=== PATIENT | female | born 1990 | race Caucasian/White ===

== ENCOUNTER 2018-01-16 17:49 | Inpatient (IN) | payer BC ==
[2018-01-16] MEDS ORDERED: Lidocaine 1% 50 ML MDV INJECT ONE (18:52)
[2018-01-16] MEDS ORDERED: Sodium Chloride 0.9% 10 ML Syringe FLUSH PRN (18:52)
[2018-01-16] MEDS ORDERED: Lactated Ringers 1,000 ML IV SCH ×2 (19:00)
[2018-01-16] MEDS ORDERED: Oxytocin/Lactated Ringers 10 UNIT/1,000 ML BAG IV ONE (19:07)
[2018-01-16] MEDS ORDERED: Nalbuphine 20 MG/1 ML Amp ONE (19:11)
[2018-01-16] MEDS ORDERED: Oxytocin/Lactated Ringers 10 UNIT/1,000 ML BAG IV SCH (19:15)
--- NOTE | 2018-01-16 20:24 | PCM.LDHP ---
L&D History of Present Illness - General Date of Service: 01/16/18 Admit Problem/Dx: Admission Diagnosis/Problem Admission Diagnosis/Problem Source of Information: Patient History Limitations: Reports: No Limitations - History of Present Illness Introduction:: 27 year old here in active labor - Related Data Allergies/Adverse Reactions: Allergies Allergy/AdvReac Type Severity Reaction Status Date / Time No Known Allergies Allergy Verified 12/11/15 09:37 Home Medications: Home Meds Vit No.130/Iron/FA [ Vitamins] 1 each PO DAILY 12/11/15 [ History] Past Medical History - Past Health History Medical/Surgical History: Denies Medical/Surgical History Social & Family History - Tobacco Use Smoking Status *Q: Never Smoker Second Hand Smoke Exposure: No - Recreational Drug Use Recreational Drug Use: No H&P Review of Systems - Review of Systems: Review Of Systems: See Below General: Reports: No Symptoms HEENT: Reports: No Symptoms Pulmonary: Reports: No Symptoms Cardiovascular: Reports: No Symptoms Gastrointestinal: Reports: No Symptoms Genitourinary: Reports: No Symptoms Musculoskeletal: Reports: No Symptoms Skin: Reports: No Symptoms Psychiatric: Reports: No Symptoms Neurological: Reports: No Symptoms Hematologic/Lymphatic: Reports: No Symptoms Immunologic: Reports: No Symptoms L&D Exam - Exam Exam: See Below - OB Specific Contraction Intensity: Moderate to Strong Movement: Active Heart Tones: Present Heart Rate (FHR) Variability: Moderate (6-25 bmp) Presentation: Vertex - Alvarado Score Alvarado Score Cervix Position: Anterior Alvarado Score Consistency: Soft Alvarado Score Effacement: >80% Alvarado Score Dilation: > 5 cm Alvarado Score Infant's Station: -1 ,0 Alvarado Score Total: 12 - Exam General: Alert, Oriented HEENT: PERRLA, Conjunctiva Clear, EACs Clear, EOMI, Hearing Intact, Mucosa Moist & Pyatt, Nares Patent, Normal Nasal Septum, Posterior Pharynx Clear, TMs Clear Neck: Supple, Trachea Midline Lungs: Clear to Auscultation, Normal Respiratory Effort Cardiovascular: Regular Rate, Regular Rhythm GI/Abdominal Exam: Normal Bowel Sounds, Soft, Non-Tender, No Organomegaly, No Distention, No Abnormal Bruit, No Mass, Pelvis Stable Rectal Exam: Normal Exam, Normal Rectal Tone Genitourinary: Normal external exam, Normal bimanual exam, Normal speculum exam Back Exam: Normal Inspection, Full Range of Motion Extremities: Normal Inspection, Normal Range of Motion, Non-Tender, No Pedal Edema, Normal Capillary Refill Skin: Warm, Dry, Intact Neurological: Cranial Nerves Intact, Reflexes Equal Bilateral Psychiatric: Alert, Normal Affect, Normal Mood - Patient Data Lab Results Last 24 hrs: Laboratory Results - last 24 hr 01/16/18 Range/Units 19:05 WBC 14.11 H (3.98-10.04) K/mm3 RBC 4.62 (3.98-5.22) M/mm3 Hgb 12.8 (11.2-15.7) gm/L Hct 39.1 (34.1-44.9) % MCV 84.6 (79.4-94.8) fl MCH 27.7 (25.6-32.2) pg MCHC 32.7 (32.2-35.5) g/dl RDW Std Deviation 43.3 (36.4-46.3) fL Plt Count 260 (182-369) K/mm3 MPV 10.1 (9.4-12.3) fl Result Diagrams: 01/16/18 19:05 Problem List Initiated/Reviewed/Updated: Yes Orders Last 24hrs: Active Orders 24 hr Category Date Time Status Activity as Tolerated [RC] PFP Care 01/16/18 18:52 Active Activity as Tolerated [RC] PFP Care 01/16/18 18:52 Active Communication Order [RC] ASDIRECTED Care 01/16/18 18:52 Active Communication Order [RC] ASDIRECTED Care 01/16/18 18:52 Active Heart Tones [RC] ASDIRECTED Care 01/16/18 18:52 Active Notify Provider [RC] PFP Care 01/16/18 18:52 Active Notify Provider [RC] PFP Care 01/16/18 18:52 Active Notify Provider [RC] PRN Care 01/16/18 18:52 Active Notify Provider [RC] PRN Care 01/16/18 18:52 Active Peripheral IV Care [RC] . DIRECTED Care 01/16/18 18:52 Active Vital Signs [RC] PER UNIT ROUTINE Care 01/16/18 18:52 Active Vital Signs [RC] PER UNIT ROUTINE Care 01/16/18 18:52 Active Regular Diet [DIET] Diet 01/16/18 Breakfast Active Lactated Ringers [Ringers, Lactated] 1,000 ml Med 01/16/18 19:00 Active IV ASDIRECTED Oxytocin/Lactated Ringers [Pitocin in LR 10 Units/1,000 Med 01/16/18 19:15 Active ML] 10 unit in 1,000 ml IV ASDIRECTED Sodium Chloride 0.9% [Saline Flush] Med 01/16/18 18:52 Active 10 ml FLUSH ASDIRECTED PRN Electronic Heart Tones Ext w TOCO [WOMSER] Oth 01/16/18 18:52 Ordered Routine Electronic Heart Tones Ext w TOCO [WOMSER] Ot 01/16/18 18:52 Ordered Routine Electronic Heart Tones Internal [WOMSER] Per Unit Ot 01/16/18 18:52 Ordered Routine Electronic Heart Tones Internal [WOMSER] Per Unit Ot 01/16/18 18:52 Ordered Routine Peripheral IV Insertion Adult [OM.PC] Routine Ot 01/16/18 18:52 Ordered Peripheral IV Insertion Adult [OM.PC] Routine Ot 01/16/18 18:52 Ordered Resuscitation Status Routine Resus Stat 01/16/18 18:52 Ordered Medication Orders Lactated Ringer's (Ringers, Lactated) 1,000 mls @ 100 mls/hr IV ASDIRECTED INGE Oxytocin/Lactated Ringer's (Pitocin In Lr 10 Units/1,000 Ml) 10 unit in 1,000 mls @ 500 mls/hr IV ASDIRECTED INGE PRN Reason: Protocol Sodium Chloride (Saline Flush) 10 ml FLUSH ASDIRECTED PRN PRN Reason: Keep Vein Open Assessment/Plan Comment:: term labor. Anticipate
[2018-01-16] MEDS ORDERED: Ibuprofen 600 MG Tab PO PRN (20:45)
[2018-01-16] MEDS ORDERED: Lanolin 100% Cream 7 GM Tube TOP PRN (20:45)
[2018-01-16] MEDS ORDERED: Docusate Sodium 100 MG Cap PO PRN (20:45)
[2018-01-16] MEDS ORDERED: Witch Hazel Medicated Pads 100/Jar TOP PRN (20:45)
[2018-01-16] MEDS ORDERED: Benzocaine/Menthol 20%-0.5% Spray 56 GM Canister TOP PRN (22:42)
[2018-01-16] MEDS: Acetaminophen 325 MG Tab PO PRN (22:44)
[2018-01-17] MEDS: Acetaminophen 325 MG Tab PO PRN ×3 (09:04→21:52)
--- NOTE | 2018-01-17 11:33 | PCM.DCSUM1 ---
Discharge Summary - Hospital Course Free Text/Narrative:: Spontaneous vaginal delivery first-degree laceration by Dr. Clark on 01/16/18Friday HPI Initial Comments: Spontaneous vaginal delivery first-degree laceration by Dr. Clark on 01/16/18Friday Brief History: Spontaneous vaginal delivery first-degree laceration by Dr. Clark on 01/16/18Friday - Discharge Data Discharge Date: 01/17/18 Discharge Disposition: Home, Self-Care 01 Condition: Good - Discharge Diagnosis/Problem(s) (1) First degree laceration of perineum during delivery, SNOMED Code(s): 188052472 ICD Code: O70.0 - FIRST DEGREE PERINEAL LACERATION DURING DELIVERY Status: Acute Current Visit: Yes (2) 40 weeks gestation of SNOMED Code(s): 98803415 ICD Code: Z3A.40 - 40 WEEKS GESTATION OF Status: Acute Current Visit: Yes - Patient Summary/Data Complications: None Consults: None Hospital Course: Uneventful - Patient Instructions Diet: Regular Diet as Tolerated Driving: Do Not Drive ([place] 48 hours) Showering/Bathing: May Shower Notify Provider of: Fever, Increased Pain, Swelling and Redness, Drainage, Nausea and/or Vomiting - Discharge Plan Prescriptions/Med Rec: Docusate Sodium [Colace Clear] 50 mg PO BID #60 capsule Home Medications: Home Meds Vit No.130/Iron/FA [ Tablet] 1 each PO DAILY 12/11/15 [History] Benzocaine/Menthol [Dermoplast Pain Relief [place]] 0 gm TOP ASDIRECTED PRN canister 01/17/18 [Rx] Docusate Sodium [Colace Clear] 50 mg PO BID #60 capsule 01/17/18 [Rx] Ibuprofen [IJD: Ibuprofen] 600 mg PO Q6H PRN tablet 01/17/18 [Rx] Lanolin [Lansinoh HPA] 1 applic TOP ASDIRECTED PRN tube 01/17/18 [Rx] Referrals: Tere Clark MD [Primary Care Provider] - (6 weeks) - Discharge Summary/Plan Comment DC Time >30 min.: No - Patient Data Vitals - Most Recent: Last Vital Signs Temp 97.0 F 01/17/18 03:37 Pulse 87 01/17/18 03:37 Resp 16 01/17/18 03:37 BP 133/74 01/17/18 03:37 Pulse Ox 98 01/17/18 03:37 Weight - Most Recent: 193 lb I&O - Last 24 hours: Intake & Output 01/16/18 01/17/18 01/17/18 22:59 06:59 14:59 Intake Total 1000 Balance 1000 Lab Results - Last 24 hrs: Laboratory Results - last 24 hr 01/16/18 Range/Units 19:05 WBC 14.11 H (3.98-10.04) K/mm3 RBC 4.62 (3.98-5.22) M/mm3 Hgb 12.8 (11.2-15.7) gm/L Hct 39.1 (34.1-44.9) % MCV 84.6 (79.4-94.8) fl MCH 27.7 (25.6-32.2) pg MCHC 32.7 (32.2-35.5) g/dl RDW Std Deviation 43.3 (36.4-46.3) fL Plt Count 260 (182-369) K/mm3 MPV 10.1 (9.4-12.3) fl Med Orders - Current: Current Medications Acetaminophen (Tylenol) 650 mg PO Q4H PRN PRN Reason: mild pain or fever Last Admin: 01/17/18 09:04 Dose: 650 mg Benzocaine/Menthol (Dermoplast Pain Relief [place]) 0 gm TOP ASDIRECTED PRN PRN Reason: Pain Last Admin: 01/16/18 23:12 Dose: 1 jar Docusate Sodium (Colace) 100 mg PO BID PRN PRN Reason: Constipation Emollient Ointment (Lansinoh Hpa) 0 gm TOP ASDIRECTED PRN PRN Reason: Sore Nipples Ibuprofen (Motrin) 600 mg PO Q6H PRN PRN Reason: Mild pain or fever Witch Mandy (Tucks) 1 pad TOP ASDIRECTED PRN PRN Reason: Hemorrhoid pain Last Admin: 01/16/18 22:44 Dose: 1 jar Discontinued Medications Lactated Ringer's (Ringers, Lactated) 1,000 mls @ 100 mls/hr IV ASDIRECTED INGE Lactated Ringer's (Ringers, Lactated) 1,000 mls @ 100 mls/hr IV ASDIRECTED INGE Oxytocin/Lactated Ringer's (Pitocin In Lr 10 Units/1,000 Ml) Confirm Administered Dose 10 unit in 1,000 mls @ as directed IV .STK-MED ONE Stop: 01/16/18 19:08 Last Admin: 01/17/18 02:02 Dose: Not Given Oxytocin/Lactated Ringer's (Pitocin In Lr 10 Units/1,000 Ml) 10 unit in 1,000 mls @ 500 mls/hr IV ASDIRECTED INGE PRN Reason: Protocol Last Admin: 01/16/18 20:23 Dose: 500 mls/hr Lidocaine HCl (Xylocaine 1%) 10 ml INJECT ONETIME ONE Stop: 01/16/18 18:53 Last Admin: 01/16/18 20:23 Dose: 10 ml Nalbuphine HCl (Nubain) Confirm Administered Dose 20 mg .ROUTE [employer] ONE Stop: 01/16/18 19:12 Last Admin: 01/16/18 19:15 Dose: 20 mg Sodium Chloride (Saline Flush) 10 ml FLUSH ASDIRECTED PRN PRN Reason: Keep Vein Open *Q Meaningful Use (DIS) - VTE *Q VTE Criteria *Q: - Stroke *Q Stroke Criteria *Q: - AMI *Q AMI Criteria *Q:
[2018-01-18] MEDS: Acetaminophen 325 MG Tab PO PRN (08:19)
[2018-01-18 09:30] VITALS: BP 134/84
== END 2018-01-18 09:30 | disposition home or self-care (01) | DRG 560 ==
LOC: JD.OB 17:49 → OBSVTOIN 20:08 → JD.OB 20:08
PROVIDERS: ADMIT Obstetrics & Gynecology; ATTEND Obstetrics & Gynecology
PROC: 10E0XZZ Delivery of Products of Conception, External Approach (ICD-10-PCS; principal; 2018-01-16)
PROC: 10907ZC Drainage of Amniotic Fluid, Therapeutic from Products of Conception, Via Natural or Artificial Opening (ICD-10-PCS; 2018-01-16)
PROC: 0HQ9XZZ Repair Perineum Skin, External Approach (ICD-10-PCS; 2018-01-16)
DX: O70.0 First degree perineal laceration during delivery (principal); Z3A.40 40 weeks gestation of pregnancy; Z37.0 Single live birth
CPT/HCPCS: 36415; 59300; 59409; 85027; A9270-GY; J2300; J2590

== ENCOUNTER 2020-05-14 01:05 | Emergency (ER) | payer BC, OTHER ==
[2020-05-14 01:17] VITALS: BP 155/92; PULSE 91
--- NOTE | 2020-05-14 02:24 | EDM.PDOC ---
ED HPI GENERAL MEDICAL PROBLEM - General Chief Complaint: Abdominal Pain Stated Complaint: ABDOMINAL/CHEST PAIN Time Seen by Provider: 05/14/20 02:24 - History of Present Illness INITIAL COMMENTS - FREE TEXT/NARRATIVE: 29-year-old female presents the emergency room with upper abdominal and lower chest pain. She gets this on and on and off basis but is been more bothersome this evening than normal. The patient has had some nausea no vomiting. Her stools have been a little on the loose side but certainly not diarrhea and they are still formed. Patient denies any fevers or chills. The patient gets this on an intermittent basis but this is more bothersome than normal. Patient has not had any breathing difficulties or shortness of breath or severe chest pressure at times she notices the pain radiating into her shoulder. Upper Abdomen Pain Score (Numeric/FACES): 6 - Related Data Allergies Allergy/AdvReac Type Severity Reaction Status Date / Time No Known Allergies Allergy Verified 05/14/20 01:17 Home Meds: Home Meds Fexofenadine/Pseudoephedrine [Мария-D 24 Hour Tablet] 1 tab PO DAILY 05/14/20 [History] Fluticasone Propionate [Flonase] 1 spray NS DAILY 05/14/20 [History] Potassium Chloride [Klor-Con M20] 20 meq PO Q12H #4 tab.er.prt 05/14/20 [Rx] Past Medical History - Past Health History Medical/Surgical History: Denies Medical/Surgical History Cardiovascular History: Reports: None Respiratory History: Reports: None Gastrointestinal History: Reports: None Genitourinary History: Reports: None [employer] History: Reports: Musculoskeletal History: Reports: None Neurological History: Reports: None Psychiatric History: Reports: None Endocrine/Metabolic History: Reports: None Hematologic History: Reports: None Immunologic History: Reports: None Oncologic (Cancer) History: Reports: None Dermatologic History: Reports: None - Infectious Disease History Infectious Disease History: Reports: None - Past Surgical History HEENT Surgical History: Reports: Oral Surgery Social & Family History - Family History Family Medical History: Noncontributory - Tobacco Use Smoking Status *Q: Never Smoker - Caffeine Use Caffeine Use: Reports: Coffee - Recreational Drug Use Recreational Drug Use: No ED ROS GENERAL - Review of Systems Review Of Systems: See Below Constitutional: Reports: No Symptoms HEENT: Reports: Other (Some allergic rhinitis symptoms but nothing out of the ordinary) Respiratory: Reports: No Symptoms, Other (She has some chest discomfort that is nonreproducible) Cardiovascular: Reports: Other (Vague chest discomfort) Endocrine: Reports: No Symptoms GI/Abdominal: Reports: Abdominal Pain, Nausea, Other (Stools are softer than normal but not runny and not frequent). Denies: Constipation, Diarrhea, Vomiting : Reports: No Symptoms Musculoskeletal: Reports: No Symptoms Skin: Reports: No Symptoms Neurological: Reports: No Symptoms Psychiatric: Reports: No Symptoms ED EXAM, GI/ABD - Physical Exam Exam: See Below Exam Limited By: No Limitations General Appearance: Alert, No Apparent Distress Head: Atraumatic, Normocephalic Neck: Normal Inspection, Supple, Non-Tender, Full Range of Motion. No: Lymphadenopathy (L), Lymphadenopathy (R) Respiratory/Chest: No Respiratory Distress, Lungs Clear, Normal Breath Sounds, Other (Deep breathing does not make the pain better or worse) Cardiovascular: Regular Rate, Rhythm, No Edema, No Murmur GI/Abdominal Exam: Normal Bowel Sounds, Soft, Other (Vague upper abdominal discomfort not really aggravated by palpation) Back Exam: Normal Inspection. No: CVA Tenderness (L), CVA Tenderness (R) Extremities: Normal Inspection, Normal Range of Motion, Non-Tender Neurological: Alert, Oriented, Normal Cognition EKG INTERPRETATION EKG Date: 05/14/20 Rhythm: NSR [place]: Normal P-Wave: Present QRS: Normal ST-T: Normal QT: Normal Comparison: NA - No Prior EKG EKG Interpretation Comments: Normal EKG Course - Vital Signs Last Recorded V/S: Last Vital Signs Temp 36.4 C 05/14/20 01:14 Pulse 91 05/14/20 01:14 Resp 16 05/14/20 01:14 BP 155/92 H 05/14/20 01:14 Pulse Ox 100 05/14/20 01:14 - Orders/Labs/Meds Orders: Active Orders 24 hr Category Date Time Status EKG Documentation Completion [RC] STAT Care 05/14/20 02:33 Active Chest 2V [CR] Stat Exams 05/14/20 02:34 Taken Labs: Laboratory Tests 05/14/20 05/14/20 05/14/20 Range/Units 01:25 01:25 01:25 WBC 8.68 (3.98-10.04) K/mm3 RBC 4.92 (3.98-5.22) M/mm3 Hgb 14.9 D (11.2-15.7) gm/dl Hct 43.3 (34.1-44.9) % MCV 88.0 D (79.4-94.8) fl MCH 30.3 (25.6-32.2) pg MCHC 34.4 (32.2-35.5) g/dl RDW Std Deviation 39.7 (36.4-46.3) fL Plt Count 296 (182-369) K/mm3 MPV 9.7 (9.4-12.3) fl Neut % (Auto) 57.5 (34.0-71.1) % Lymph % (Auto) 31.3 (19.3-51.7) % [place] % (Auto) 9.3 (4.7-12.5) % Eos % (Auto) 1.3 (0.7-5.8) Baso % (Auto) 0.5 (0.1-1.2) % Neut # (Auto) 4.99 (1.56-6.13) K/mm3 Lymph # (Auto) 2.72 (1.18-3.74) K/mm3 [place] # (Auto) 0.81 H (0.24-0.36) K/mm3 Eos # (Auto) 0.11 (0.04-0.36) K/mm3 Baso # (Auto) 0.04 (0.01-0.08) K/mm3 D-Dimer, Quantitative 0.23 (0.19-0.50) mg/L Sodium 142 (136-145) mEq/L Potassium 3.0 L (3.5-5.1) mEq/L Chloride 102 (98-107) mEq/L Carbon Dioxide 29 (21-32) mEq/L Anion Gap 14.0 (5-15) BUN 24 H (7-18) mg/dL Creatinine 1.2 H (0.55-1.02) mg/dL Est Cr Clr Drug Dosing 59.73 mL/min Estimated GFR (MDRD) 53 (>60) mL/min BUN/Creatinine Ratio 20.0 H (14-18) Glucose 114 H (74-106) mg/dL Calcium 10.3 H (8.5-10.1) mg/dL Total Bilirubin 0.6 (0.2-1.0) mg/dL AST 18 (15-37) U/L ALT 26 (14-59) U/L Alkaline Phosphatase 48 (46-116) U/L Troponin I < 0.017 (0.00-0.056) ng/mL Total Protein 7.7 (6.4-8.2) g/dl Albumin 4.5 (3.4-5.0) g/dl Globulin 3.2 gm/dL Albumin/Globulin Ratio 1.4 (1-2) Lipase 105 (73-393) U/L Meds: Medications Discontinued Medications Generic Name Dose Route Start Last Admin Trade Name Freq PRN Reason Stop Dose Admin Al Hydroxide/Mg Hydroxide 30 0 ml 05/14/20 03:02 05/14/20 03:09 ml/ Lidocaine HCl 15 ml PO 05/14/20 03:03 45 ml ONETIME ONE Administration Famotidine 40 mg 05/14/20 03:47 05/14/20 04:05 Pepcid PO 05/14/20 03:48 40 mg ONETIME ONE Administration Lactated Ringer's 1,000 mls @ 999 mls/hr 05/14/20 04:02 05/14/20 04:08 Ringers, Lactated IV 05/14/20 05:02 999 mls/hr .BOLUS ONE Administration Potassium Chloride 40 meq 05/14/20 04:02 05/14/20 04:06 Klor-Con M20 PO 05/14/20 04:03 40 meq ONETIME ONE Administration - Re-Assessments/Exams Free Text/Narrative Re-Assessment/Exam: 05/14/20 03:46 Laboratory evaluation is unremarkable then some hypokalemia and she appears to be dry from a laboratory standpoint. EKG is essentially normal. The patient had significant improvement with a GI cocktail. We will give her 40 mill grams of Pepcid now and then have her take 20 mg twice daily for 7 days and then 1 daily thereafter. We will give fluids and potassium 05/14/20 05:24 Feels better after some IV fluids. She agrees to drink plenty of fluids at home and take the potassium as directed as well as the Pepcid. Departure - Departure Time of Disposition: 05:24 Disposition: Home, Self-Care 01 Clinical Impression: Dyspepsia, Hypokalemia, Dehydration - Discharge Information Prescriptions: Potassium Chloride [Klor-Con M20] 20 meq PO Q12H #4 tab.er.prt Instructions: Hypokalemia, Dehydration, Adult Referrals: Tere Clark MD [Primary Care Provider] - Forms: ED Department Discharge Additional Instructions: Return to the emergency room with any questions problems or worsening symptoms. Push lots of fluids as you are still probably on the dry side. Take the potassium as directed you will only take it for 2 days. Get some [id number] Pepcid, or famotidine the generic name. This should come in 20 mg tablets take 1 twice daily for 7 days and then 1 daily thereafter. Follow-up with your healthcare provider in 1 week for recheck. Have your potassium rechecked. Sepsis Event Note (ED) - Evaluation Sepsis Screening Result: No Definite Risk - Focused Exam Vital Signs: Vital Signs Temp Pulse Resp BP Pulse Ox 05/14/20 01:14 36.4 C 91 16 155/92 H 100 - My Orders Last 24 Hours: My Active Orders 05/14/20 02:33 EKG Documentation Completion [RC] STAT 05/14/20 02:34 Chest 2V [CR] Stat - Assessment/Plan Last 24 Hours: My Active Orders 05/14/20 02:33 EKG Documentation Completion [RC] STAT 05/14/20 02:34 Chest 2V [CR] Stat
[2020-05-14] MEDS ORDERED: Alum Hydrox/Mag Hydrox/Simeth 30 ML, Lidocaine 2% 15 ML PO ONE ×2 (03:02)
[2020-05-14] MEDS ORDERED: Famotidine 20 MG Tab PO ONE (03:47)
[2020-05-14] MEDS ORDERED: Potassium Chloride 20 MEQ Tab.ER PO ONE (04:02)
[2020-05-14] MEDS ORDERED: Lactated Ringers 1,000 ML IV ONE (04:02)
--- NOTE | 2020-05-14 10:51 | CR ---
Chest: PA and lateral views of the chest were obtained. Comparison: No prior chest imaging is available. Findings: Heart size and mediastinum are normal. Lungs are clear. Bony structures appear within normal limits. Impression: 1. Nothing acute is appreciated on 2 view chest x-ray. Diagnostic code #1 This report was dictated in MDT
== END 2020-05-14 05:34 | disposition home or self-care (01) ==
LOC: JD.ED 01:05
DX: E86.0 Dehydration (principal); E87.6 Hypokalemia; Z79.899 Other long term (current) drug therapy
CPT/HCPCS: 36415; 71046; 80053; 83690; 84484; 85025; 85379; 93005; 96360; 99285; A9270; J7120; 93010; 99284

== ENCOUNTER 2020-11-30 11:40 | Emergency (ER) | payer BC ==
[2020-11-30 12:05] VITALS: BP 139/87; PULSE 80
--- NOTE | 2020-11-30 12:31 | EDM.PDOC ---
ED HPI GENERAL MEDICAL PROBLEM - General Chief Complaint: Neurological Problem Stated Complaint: DIZZY/TINGLING IN HANDS AND FEET Time Seen by Provider: 11/30/20 12:10 Source of Information: Reports: Patient History Limitations: Reports: No Limitations - History of Present Illness INITIAL COMMENTS - FREE TEXT/NARRATIVE: 30-year-old female presents to the emergency department with complaints of dizziness and numbness noted to her bilateral hands and feet. Patient states that this started after she received her first Covid vaccine on Friday which was 3 days ago. Patient states that she notices the numbness to her hands and feet when she is sitting or resting. She states that this dissipates when she is up and moving around or being active. She states that the numbness to her bilateral hands is similar to that of a glove, however she denies increased weakness or decreased range of motion to her bilateral hands. She states that she has numbness to her bilateral lower extremities from about mid calf on down that is intermittent as well. She states that the numbness is circumferential. And it decreases she denies a headache, fever, chills, nausea, vomiting or d iarrhea. Onset: Gradual - Related Data Allergies Allergy/AdvReac Type Severity Reaction Status Date / Time No Known Allergies Allergy Verified 11/27/20 10:31 Home Meds: Home Meds Fluticasone Propionate [Flonase] 1 spray NS ASDIRECTED 05/14/20 [History] Omeprazole 20 mg PO DAILY 11/30/20 [History] Past Medical History - Past Health History Medical/Surgical History: Denies Medical/Surgical History Cardiovascular History: Reports: None Respiratory History: Reports: None Gastrointestinal History: Reports: None, GERD Genitourinary History: Reports: None [employer] WORK[employer] History: Reports: Musculoskeletal History: Reports: None Neurological History: Reports: None Psychiatric History: Reports: None Endocrine/Metabolic History: Reports: None Hematologic History: Reports: None Immunologic History: Reports: None Oncologic (Cancer) History: Reports: None Dermatologic History: Reports: None - Infectious Disease History Infectious Disease History: Reports: None, Chicken Pox - Past Surgical History HEENT Surgical History: Reports: Oral Surgery GI Surgical History: Reports: EGD Social & Family History - Family History Family Medical History: No Pertinent Family History - Tobacco Use Tobacco Use Status *Q: Never Tobacco User - Caffeine Use Caffeine Use: Reports: Coffee - Recreational Drug Use Recreational Drug Use: No ED ROS GENERAL - Review of Systems Review Of Systems: See Below Constitutional: Reports: No Symptoms HEENT: Reports: Vertigo Respiratory: Reports: No Symptoms Cardiovascular: Reports: No Symptoms Endocrine: Reports: No Symptoms GI/Abdominal: Reports: No Symptoms : Reports: No Symptoms Musculoskeletal: Reports: No Symptoms Skin: Reports: No Symptoms Neurological: Reports: Numbness (Bilateral hands and bilateral lower extremities from francis on down), Tingling (Bilateral hands and bilateral lower extremities from francis on down) Psychiatric: Reports: No Symptoms Hematologic/Lymphatic: Reports: No Symptoms Immunologic: Reports: No Symptoms ED EXAM, NEURO - Physical Exam Exam: See Below Exam Limited By: No Limitations General Appearance: Alert, WD/WN, No Apparent Distress Eye Exam: Bilateral Eye: PERRL Ears: Normal External Exam, Normal Canal, Hearing Grossly Normal, Normal TMs Nose: Normal Inspection Throat/Mouth: Normal Inspection, Normal Lips, Normal Voice, No Airway Compromise Head Exam: Atraumatic, Normocephalic Neck: Normal Inspection, Supple, Non-Tender, Full Range of Motion Respiratory/Chest: No Respiratory Distress, Lungs Clear, Normal Breath Sounds, No Accessory Muscle Use, Chest Non-Tender Cardiovascular: Normal Peripheral Pulses, Regular Rate, Rhythm, No Edema, No Murmur GI/Abdominal: Normal Bowel Sounds, Soft, Non-Tender, No Distention (Female) Exam: Deferred Rectal (Female) Exam: Deferred Neurological: Alert, Normal Mood/Affect, CN II-XII Intact, Normal Gait, No Motor/Sensory Deficits, Oriented x 3 Back Exam: Normal Inspection, Full Range of Motion Extremities: Normal Inspection, Normal Range of Motion, Non-Tender, No Pedal Edema, Normal Capillary Refill Psychiatric: Normal Affect, Normal Mood Skin Exam: Warm, Dry, Intact, Normal Color, No Rash Course - Vital Signs Text/Narrative:: 30-year-old female presents emergency department complaints of numbness and tingling noted to her bilateral hands and lower extremities from mid francis on down. She states that it is intermittent when it occurs and she notices it more predominantly when she is sitting down to rest or laying in bed. She states that when she is up moving around or being active the numbness dissipates. Patient also complains of intermittent "dizziness ". Upon assessment patient's bilateral ears are unremarkable there is no wax noted up against the eardrum and no bulging or erythema noted. Patient has equal director financial services and equal push pull strength to the lower extremities. Full neuro exam was unremarkable. I have ordered a CBC, CMP, and a magnesium level. As patient states she does have a history of hypokalemia. Last Recorded V/S: Last Vital Signs Temp 98.1 F 11/30/20 12:02 Pulse 80 11/30/20 12:02 Resp 20 11/30/20 12:02 BP 139/87 11/30/20 12:02 Pulse Ox 100 11/30/20 12:02 - Orders/Labs/Meds Labs: Laboratory Tests 11/30/20 11/30/20 Range/Units 12:34 12:34 WBC 6.94 (3.98-10.04) K/mm3 RBC 4.94 (3.98-5.22) M/mm3 Hgb 14.5 (11.2-15.7) gm/dl Hct 43.9 (34.1-44.9) % MCV 88.9 (79.4-94.8) fl MCH 29.4 (25.6-32.2) pg MCHC 33.0 (32.2-35.5) g/dl RDW Std Deviation 40.8 (36.4-46.3) fL Plt Count 261 (182-369) K/mm3 MPV 9.4 (9.4-12.3) fl Neut % (Auto) 77.1 H (34.0-71.1) % Lymph % (Auto) 14.8 L (19.3-51.7) % Monroe % (Auto) 7.6 (4.7-12.5) % Eos % (Auto) 0.3 L (0.7-5.8) Baso % (Auto) 0.1 (0.1-1.2) % Neut # (Auto) 5.34 (1.56-6.13) K/mm3 Lymph # (Auto) 1.03 L (1.18-3.74) K/mm3 Monroe # (Auto) 0.53 H (0.24-0.36) K/mm3 Eos # (Auto) 0.02 L (0.04-0.36) K/mm3 Baso # (Auto) 0.01 (0.01-0.08) K/mm3 Sodium 143 (136-145) mEq/L Potassium 3.7 (3.5-5.1) mEq/L Chloride 105 (98-107) mEq/L Carbon Dioxide 27 (21-32) mEq/L Anion Gap 14.7 (5-15) BUN 14 (7-18) mg/dL Creatinine 0.9 (0.55-1.02) mg/dL Est Cr Clr Drug Dosing 78.93 mL/min Estimated GFR (MDRD) > 60 (>60) mL/min BUN/Creatinine Ratio 15.6 (14-18) Glucose 96 (74-106) mg/dL Calcium 9.4 (8.5-10.1) mg/dL Magnesium 2.2 (1.8-2.4) mg/dl Total Bilirubin 0.7 (0.2-1.0) mg/dL AST 16 (15-37) U/L ALT 25 (14-59) U/L Alkaline Phosphatase 48 (46-116) U/L Total Protein 7.5 (6.4-8.2) g/dl Albumin 4.3 (3.4-5.0) g/dl Globulin 3.2 gm/dL Albumin/Globulin Ratio 1.3 (1-2) TSH 3rd Generation 1.064 (0.358-3.74) uIU/mL - Re-Assessments/Exams Free Text/Narrative Re-Assessment/Exam: 11/30/20 13:26 CBC reveals WBC 6.94, hemoglobin 14.5, hematocrit 43.9, neutrophil percentage 77.1, lymphocyte percentage 14.8, CMP is completely unremarkable TSH is 1.064, magnesium 2.2. Patient symptoms not due to an electrolyte abnormality. Neurochecks are unremarkable as previously charted. Patient symptoms likely due to Covid vaccination. Recommend she follow-up with her primary provider, Dr. Fonseca, in about a week if symptoms have not improved. Departure - Departure Time of Disposition: 13:31 Disposition: Home, Self-Care 01 Condition: Good Clinical Impression: Numbness and tingling in both hands, Numbness and tingling of both feet - Discharge Information Instructions: Paresthesia, [id number] Referrals: Geovanna De La Cruz MD [Primary Care Provider] - Forms: ED Department Discharge Additional Instructions: You were seen in the emergency department with complaints of numbness and tingling to both her hands and feet. Also complained of some dizziness. Lab work was completed and this is completely unremarkable. Your potassium and magnesium levels are both normal and there is no sign of infection. Your neuro assessment was completely unremarkable as well. Symptoms you are describing and experiencing are likely due to receiving the Covid vaccination. If they persist in about a week I would follow-up with your primary care physician. Should your condition worsen or change please return to the emergency department Sepsis Event Note (ED) - Evaluation Sepsis Screening Result: No Definite Risk - Focused Exam Vital Signs: Vital Signs Temp Pulse Resp BP Pulse Ox 11/30/20 12:02 98.1 F 80 20 139/87 100
== END 2020-11-30 13:54 | disposition home or self-care (01) ==
LOC: JD.ED 11:40
DX: R20.0 Anesthesia of skin (principal); R20.2 Paresthesia of skin; K21.9 Gastro-esophageal reflux disease without esophagitis; Z79.899 Other long term (current) drug therapy
CPT/HCPCS: 36415; 80053; 83735; 84443; 85025; 99283; 99284

== ENCOUNTER 2025-08-01 22:34 | Emergency (ER) | payer BC ==
[2025-08-02 00:06] VITALS: BP 121/74; PULSE 80
[2025-08-02] MEDS: Ketorolac 60 MG/2 ML SDV IM ONE (00:12)
== END 2025-08-02 00:17 | disposition home or self-care (01) ==
LOC: JD.ED 22:34
DX: S06.0X0A Concussion without loss of consciousness, initial encounter (principal); M54.2 Cervicalgia; K21.9 Gastro-esophageal reflux disease without esophagitis; Z79.899 Other long term (current) drug therapy; W06.XXXA Fall from bed, initial encounter
CPT/HCPCS: 70450; 72125; 96372; 99284; J1885